=== PATIENT | female | born 1990 | race Caucasian/White ===

== ENCOUNTER → 2016-09-09 | Outpatient (CLI) | payer BC, OTHER ==
[~2016-09-09] MED LIST: COLACE100 MG PO; IBUPROFEN600 MG PO; IRON325 MG PO; PRENATAL VITAMINS PO
== END ==
LOC: LAB SRH 11:00
DX: Z34.82 Encounter for supervision of other normal pregnancy, second trimester (principal); O99.280 Endocrine, nutritional and metabolic diseases complicating pregnancy, unspecified trimester
CPT/HCPCS: 90074; 90648; 91023; 93140

== ENCOUNTER 2016-10-07 13:05 | Outpatient (CLI) | payer BC, OTHER | END 2016-10-07 23:00 | LOC: LAB SRH 13:05 | DX: O99.280 Endocrine, nutritional and metabolic diseases complicating pregnancy, unspecified trimester (principal) | CPT/HCPCS: 90074; 90648; 91023; 93140 ==

== ENCOUNTER 2016-11-26 14:36 | Inpatient (IN) | payer BC, OTHER ==
[~2016-11-26] VITALS: Ht 160 cm; Wt 108.0 kg
[2016-11-26] VITALS (12 sets, daily range): BP systolic 117–134; BP diastolic 60–74
--- NOTE | 2016-11-26 17:05 | History & Physical Report ---
Admission Admit Date 11/26/2016 Information Source Information Source: Self Reliability: Good History Chief Complaint Labor History of Present Illness 26 yo at 39+0 with c/o regular uterine contractions q5 min. No LOF or VB. Good FM. No complications this . GBS negative. Patient History 1. Spontaneous onset of labor Social History Denies tobacco/alcohol/drug use Advance Directive None Medications and Allergies Medications PNV Allergies Coded Allergies: No Known Drug Allergy (01/18/10) Uncoded Allergies: Food Allergies: NKA Latex Allergy: N Med Allergies: NKA Review of Systems Constitutional Denies: Fever, Chills, Sweats. Respiratory Denies: Cough. Cardiovascular Denies: Chest Pain. Gastrointestinal Abdominal Pain. Denies: Nausea, Vomiting, Diarrhea, Constipation. Genitourinary Denies: Dysuria, Frequency. OB - Admission Exam Physical Exam HEENT: Normocephalic, atraumatic Heart: Rhythm Normal Lung Sounds: Clear Abdomen: Gravid Extremities: Normal Reflexes: Normal Cervical Dilatation: 5 cm Effacement: 75% Station: -1 Membranes: Intact Amniotic Fluid: Unevaluable Accelerations: Accelerations Present Decelerations: Variable Decelerations Short Term Variability: Present Television [employer] Variability: Average (6-25) Contractions on Admission: <5 Minutes Apart Assessment and Plan Problem List 1. Spontaneous onset of labor Plan 1. Admit for term labor 2. Expectant management. Augment only after SROM. 3. Epidural ok if desired. 4. GBS negative. 5. CBC/T&S
--- NOTE | 2016-11-26 19:48 | Operative Report ---
Operative Report Date of Surgery: 11/26/16 Preoperate Diagnosis: Retained Placenta Postoperative Diagnosis: Retained Placenta Surgeon: Mariela Pablo Procedure Performed: Suction Dilation and Curettage Anesthesia: General Endotracheal Indications: Retained Placenta Surgical Technique: Patient was taken to the OR where she was placed under general endotracheal anesthesia without difficulty. She was then placed in the dorsal lithotomy position and prepped and draped in the normal sterile fashion. A time out was performed. Her bladder was drained with a straight in and out catheter. A weighted speculum was then placed in the vagina and a right angle retractor was used to help visualize the cervix. The anterior lip of the cervix was grasped with a ring forcep. A 12 curved suction curette was placed in the uterus up to the fundus under abdominal ultrasound guidance, and then the suction tubing was attached. The uterus was curetted completely and specimen was collected and sent to pathology. Due to uterine atony, Methergine 0.2mg IM and Cytotec 800mcg LA were given in the OR, along with 20 units of pitocin within a liter fluid bag. All instrument counts were correct at the end of the procedure. She was awoken from general anesthesia and taken to the PACU in stable condition. Findings 1. Thickened endometrial lining 2. Uterine atony
--- NOTE | 2016-11-26 19:53 | NUR ---
REC'D FROM OR SPONT RESP. HOB ELEVATED 25 DEGREES. SLEEPING QUIETLY BUT ROUSES TO VERBAL STIMULI.
--- NOTE | 2016-11-26 20:11 | NUR ---
CHIP PAD CHANGES. COMFORTABLE. UTERUS FIRM.
--- NOTE | 2016-11-26 21:31 | DIAGNOSTIC IMAGING REPORT ---
PROCEDURE: US COMPLETE PELVIC INDICATION: 2 hours . TECHNIQUE: Transabdominal yang scale and color Doppler sonographic images. COMPARISON: None. FINDINGS: Enlarged uterus. Thickened (4.2 cm) inhomogeneous endometrium down to the cervix consistent with blood products. There is a questionable focus of vascularity at the periphery. IMPRESSION: 1. Thickened inhomogeneous endometrium consistent with blood products. There is a questionable focus of endometrial vascularity, questionable for retained products of conception. Recommend follow-up pelvic ultrasound 2. Results discussed with Dr. Pablo
--- NOTE | 2016-11-26 22:23 | NUR ---
Pt presented in active labor. Quickly progressed through labor unmedicated. viable female. Thick meconium present. RT and Dr. Farmer in attendance at delivery. Baby vigorous at and placed on maternal abdomen. Spontaneous placenta delivery, but with retained fragments. Attempted removal in room by . Plan to go to OR for D&C. Nursing wastewater supervisor notified. Pt tolerated procedure well. VSS after return to unit. Groggy, but easily arousable. Uterus firm with light flow. Denies pain. is at BS and is staying to help assist with NB.
[2016-11-27 00:30] VITALS: BP 112/62
[2016-11-27 04:30] VITALS: BP 110/72
--- NOTE | 2016-11-27 08:36 | Provider's Discharge Care Plan ---
Problem, Goal, Plan Problem List 1. (normal spontaneous vaginal delivery) Instructions: Follow up as needed, Follow up as directed, Take meds as directed, Pelvic rest for 6 weeks, No driving on pain medications, No heavy lifting greater than 10 pounds for 2 weeks 2. Retained placenta or amniotic membrane after delivery without hemorrhage Instructions: Take meds as directed, Notify MD if bleeding greater than 1 pad per hour, Notify MD if pain increases, Notify MD if foul smelling vaginal discharge develops
[2016-11-27] MEDS ORDERED: IBUPROFEN600 MG PO (08:37)
[2016-11-27] MEDS ORDERED: COLACE100 MG PO (08:38)
[2016-11-27] MEDS ORDERED: IRON325 MG PO (08:39)
[2016-11-27] MEDS ORDERED: PRENATAL VITAMINS PO (08:41)
--- NOTE | 2016-11-27 08:43 | Progress Note ---
Subjective General PPD #1 s/p at 1723, with retained placenta, followed by suction D&C. Denies pain this morning. Ambulating and voiding without difficulty. Tolerating PO intake. No complaints. Constitutional Denies: Fever, Chills, Sweats, Weakness, Malaise. Respiratory Denies: Cough. Cardiovascular Denies: Chest Pain. Gastrointestinal Denies: Nausea, Vomiting, Abdominal Pain. Genitourinary Denies: Dysuria. Neurological Denies: Weakness, Numbness. Physical Exam Vital Signs / I&Os Vital Signs Date Time Temp Pulse Resp B/P Pulse O2 O2 Flow FiO2 Ox Delivery Rate 11/27 0920 98.4 87 18 111/60 11/27 0430 98.4 97 18 110/72 11/27 0030 99.1 99 18 112/62 11/27 0030 99.1 99 18 112/62 95 11/26 2154 81 117/60 95 11/269 89 119/64 97 11/26 2124 82 121/63 97 11/260 91 127/60 97 11/26 2054 80 122/69 11/260 78 121/72 11/27 2023 98.4 85 126/72 11/27 2011 85 14 121/73 97 11/26 2001 98.8 87 15 115/72 96 11/26 1953 94 16 116/63 96 11/26 1948 98.8 96 17 122/70 97 11/26 1829 100 130/69 11/26 1814 100 117/64 11/26 1759 97 125/62 11/26 1754 99 134/63 11/26 1731 90 123/74 I&O 11/27 0000 11/26 1600 11/26 0800 Intake Total 500 Output Total 400 Balance 100 General Appearance Alert, Oriented X3, No acute distress HEENT Normal exam, Atraumatic Lungs Normal exam Cardiovascular Normal exam Abdomen fundus firm above umbilicus Extremities No cyanosis, No clubbing Assessment and Plan Problem List 1. (normal spontaneous vaginal delivery) Plan Patient doing well s/p delivery. Desires d/c home. Would like Mirena at 6 wk pp visit. 2. Retained placenta or amniotic membrane after delivery without hemorrhage Plan Patient afebrile this a.m. and without significant bleeding or pain. Repeat abdominal u/s scheduled for today to reassess uterus. If normal may d/c home.
[2016-11-27 09:20] VITALS: BP 111/60
[2016-11-27 13:30] VITALS: BP 99/56
[2016-11-27 17:00] VITALS: BP 115/60
--- NOTE | 2016-11-27 18:43 | DIAGNOSTIC IMAGING REPORT ---
PROCEDURE: US PELVIC LIMITED INDICATION: Status post vaginal delivery with retained placenta, status post TECHNIQUE: Todd scale and color Doppler sonographic images of the uterus were obtained. COMPARISON: 11/26/2016 FINDINGS: The enlarged uterus measures 22.0 x 9.8 x 12.2 cm. There is an ovoid, heterogeneous mass distending the lower uterine segment endometrial canal measuring 6.4 x 4.7 x 3.1 cm. With color Doppler imaging, there is no detectable blood flow to this mass. In the uterine fundus, the posterior wall contour of the endometrium is moderately irregular with a small triangular shaped hypoechoic focus in the junctional zone which appears to protrude into the endometrium. Immediately adjacent to this, there is mildly prominent vascular structure arising from the myometrium but not extending into the endometrium. At the fundus, the endometrium measures 18.1 mm in thickness and there is no fluid in the endometrial canal. IMPRESSION: 1. Ovoid, avascular material consistent with clot in the lower uterine segment endometrium. 2. Irregular contour to the posterior endometrial contour at the fundus with a prominent underlying myometrial vascular structure. This morphology is similar compared to the previous study. No evidence of vascularized products within the endometrium. Prominent vascular structure may be secondary to incomplete uterine contraction. 3. Discussed with Dr. Pablo.
--- NOTE | 2016-11-27 20:09 | NUR ---
Discharge instructions given and signed IV dc. Escorted to family car with baby and by facility tech.
== END 2016-11-27 20:15 | disposition home or self-care (01) | DRG 767 ==
LOC: OBC SRH 14:36 → OB SRH 14:38 → OBC SRH 15:00 → OB SRH 15:30
PROVIDERS: ADMIT Obstetrics & Gynecology
PROC: 10D17ZZ Extraction of Products of Conception, Retained, Via Natural or Artificial Opening (ICD-10-PCS; 2016-11-26)
PROC: 10E0XZZ Delivery of Products of Conception, External Approach (ICD-10-PCS; principal; 2016-11-26 18:30)
DX: O70.0 First degree perineal laceration during delivery (principal); Z37.0 Single live birth; O72.0 Third-stage hemorrhage; O72.1 Other immediate postpartum hemorrhage; Z3A.39 39 weeks gestation of pregnancy; O69.81X0 Labor and delivery complicated by cord around neck, without compression, not applicable or unspecified; O77.0 Labor and delivery complicated by meconium in amniotic fluid
CPT/HCPCS: 40012; 50004; 60001; 70002; 80102; 81615; 83432; 83526; 90074; 95059